=== PATIENT | male | born 1940 | race Caucasian/White ===

== ENCOUNTER 2017-07-07 10:29 | Emergency (ER) | payer MEDICARE, OTHER ==
[2017-07-07 10:33] VITALS: BP 175/83; PULSE 77; RESP 20; TEMP 98.1; O2SAT 99
--- NOTE | 2017-07-07 11:13 | C.PDOC ---
History Of Present Illness 76 y/o male presents to the ER complaining of ringing in his right ear which has been present for the past 1 month. Patient feels like " there is whistling in his right ear".Patient states that he is " having trouble hearing in his right ear." Time Seen by Provider: 07/07/17 10:36 Chief Complaint (Nursing): ENT Problem History Per: Patient History/Exam Limitations: no limitations Onset/Duration Of Symptoms: Days Current Symptoms Are (Timing): Still Present Severity: Moderate Past Medical History Reviewed: Historical Data, Nursing Documentation, Vital Signs Vital Signs: Last Vital Signs Temp 98.1 F 07/07/17 10:30 Pulse 77 07/07/17 10:30 Resp 20 07/07/17 10:30 BP 175/83 H 07/07/17 10:30 Pulse Ox 99 07/07/17 11:54 - Medical History PMH: Denies: Fractures (FINGER AMPUTATION) Other Surgeries: Hx of surgeries Family History: States: No Known Family Hx - Social History Hx Alcohol Use: No Hx Substance Use: No - Immunization History Hx Tetanus Toxoid Vaccination: No Hx Influenza Vaccination: Yes (2018) Hx Pneumococcal Vaccination: No Review Of Systems Constitutional: Negative for: Fever, Chills ENT: Positive for: Other (ringing in right ear) Physical Exam - Physical Exam Appears: Non-toxic, No Acute Distress Skin: Normal Color, Warm Head: Atraumatic, Normacephalic Eye(s): bilateral: Normal Inspection Ear(s): Right: Other (mild wax, otherwise TM is normal) Nose: Normal Oral Mucosa: Moist Teeth: Other (missing some teeth) Throat: Normal, No Erythema, No Exudate Neck: Supple Neurological/Psych: Oriented x3, Normal Speech, Normal Motor, Normal Sensation ED Course And Treatment O2 Sat by Pulse Oximetry: 99 (RA) Pulse Ox Interpretation: Normal Disposition Counseled Patient/Family Regarding: Need For Followup - Disposition Referrals: Trung Orozco MD [Staff Provider] - Disposition: HOME/ ROUTINE Disposition Time: 11:10 Condition: STABLE Instructions: Tinnitus (Ringing in the Ears) Forms: [facility] ([place]), Gen Discharge Inst [place] - POA Present On Arrival: None - Clinical Impression Clinical Impression: Tinnitus of right ear - Scribe Statement The provider has reviewed the documentation as recorded by the Kathleen Saul Provider Attestation: All medical record entries made by the Kathleen were at my direction and personally dictated by me. I have reviewed the chart and agree that the record accurately reflects my personal performance of the history, physical exam, medical decision making, and the department course for this patient. I have also personally directed, reviewed, and agree with the discharge instructions and disposition.
== END 2017-07-07 11:17 | disposition home or self-care (01) ==
LOC: C.ER 10:29
DX: H93.11 Tinnitus, right ear (principal)